=== PATIENT | female | born 1950 | race Caucasian/White ===

== ENCOUNTER 2018-04-14 13:18 | Emergency (ER) | payer MEDICARE ==
[2018-04-14] MEDS ORDERED: Dexamethasone 4 mg/ml Vial ONE (14:11)
== END 2018-04-14 14:41 | disposition home or self-care (01) ==
LOC: ERS 13:18
DX: L25.5 Unspecified contact dermatitis due to plants, except food (principal)
CPT/HCPCS: 96372; J1100